=== PATIENT | female | born 1955 | race Asian ===

== ENCOUNTER 2020-02-16 13:30 | Emergency (ER) | payer OTHER ==
[~2020-02-16] VITALS: Ht 157.5 cm; Wt 107.0 kg
[2020-02-16 14:00] VITALS: BP_SYST 202
[2020-02-16] MEDS ORDERED: ALBUTEROL SULFATE 0.083% 2.5 MG/3 ML VIAL.NEB INH ONE (15:45)
[2020-02-16] MEDS ORDERED: IPRATROPIUM BROM 0.5 MG/2.5 ML VIAL.NEB (ATROVENT) INH ONE (15:45)
[2020-02-16] MEDS ORDERED: KETOROLAC TROMETHAMINE 60 MG/2 ML VIAL IM ONE (15:45)
[2020-02-16 17:03] VITALS: BP_SYST 168
== END 2020-02-16 17:03 | disposition home or self-care (01) ==
LOC: SED 13:30
DX: R06.02 Shortness of breath (principal); R06.2 Wheezing; R51.9 Headache, unspecified; I10 Essential (primary) hypertension
CPT/HCPCS: 71045; 94640; 99283; J7613